=== PATIENT | female | born 2000 | race Caucasian/White ===

== ENCOUNTER → 2021-01-08 13:24 | Outpatient (CLI) | payer SELFPAY ==
[2021-01-08 15:19] LABS: Prolactin 20.6 ng/mL; Thyroid Stim Hormone (TSH) 1.02 uIU/mL (0.358-3.74)
[2021-01-08 16:28] LABS: Progesterone Level 13.54 ng/mL (See Comment)
== END ==
PROVIDERS: Visit Provider Obstetrics & Gynecology
DX: N97.9 Female infertility, unspecified (principal); Z12.4 Encounter for screening for malignant neoplasm of cervix
CPT/HCPCS: 36415; 84144; 84146; 84443; 88175; G0145